=== PATIENT | male | born 2000 | race Two or more races ===

== ENCOUNTER 2020-07-17 10:10 | Emergency (ER) | payer MEDICAID, OTHER ==
[~2020-07-17] VITALS: Ht 172.7 cm; Wt 72.6 kg
[2020-07-17 10:23] VITALS: BP 147/80
[2020-07-17] MEDS ORDERED: TETANUS-DIPTH-ACEL PERTUSSIS 0.5ML SYR Tdap IM ONE (12:45)
== END 2020-07-17 13:20 | disposition home or self-care (01) ==
LOC: ER 10:10
DX: S60.411A Abrasion of left index finger, initial encounter (principal); Z23 Encounter for immunization; W55.03XA Scratched by cat, initial encounter; Y93.89 Activity, other specified; Y92.89 Other specified places as the place of occurrence of the external cause; Y99.8 Other external cause status
CPT/HCPCS: 90471; 90715